=== PATIENT | female | born 1975 | race Caucasian/White ===

== ENCOUNTER 2017-10-28 04:17 | Emergency (ER) | payer BC ==
--- NOTE | 2017-10-28 04:24 | PDOC ---
History of Present Illness - General Stated Complaint: PAIN Time Seen by Provider: 10/28/17 04:24 - History of Present Illness Initial Comments: 10/28/17 04:32 Ms. Mcfarlane is a 42 yo female w/ pmh of HTN who presents c/o a 1 week history of diffuse back pain. She reports that this pain got worse 3-4 days ago to where she experiences significant pain with any movement, and worse again this morning when she woke up with increased, constant pain that she localizes to her left upper abdomen. She reports she must take shallow breaths currently to minimize the pain and that standing versus sitting eases her symptoms. The patient denies chest pain, shortness of breath, headache and dizziness. Denies fever, chills, nausea, vomit, diarrhea and constipation. Denies dysuria, frequency, urgency and hematuria. Allergies: NKDA Past History - Past Medical History Allergies/Adverse Reactions: Allergies Allergy/AdvReac Type Severity Reaction Status Date / Time No Known Allergies Allergy Verified 04/18/16 12:41 Home Medications: Ambulatory Orders Losartan/Hydrochlorothiazide [Hyzaar 50-12.5 Tablet] 1 each PO DAILY #14 tablet 04/18/16 Pantoprazole Sodium [Protonix] 40 mg PO DAILY #14 tablet. 04/18/16 HTN: Yes - Suicide/Smoking/Psychosocial Hx Smoking History: Never smoked Hx Alcohol Use: No Drug/Substance Use Hx: No Review of Systems - Review of Systems Comments:: 10/28/17 04:38 GENERAL/CONSTITUTIONAL: No fever or chills. No weakness. HEAD, EYES, EARS, NOSE AND THROAT: No change in vision. No ear pain or discharge. No sore throat. CARDIOVASCULAR: No chest pain or shortness of breath RESPIRATORY: No cough, wheezing, or hemoptysis. GASTROINTESTINAL: No nausea, vomiting, diarrhea or constipation. GENITOURINARY: No dysuria, frequency, or change in urination. MUSCULOSKELETAL: +Diffuse back pain with movement. SKIN: No rash NEUROLOGIC: No headache, vertigo, loss of consciousness, or change in strength/ sensation. ENDOCRINE: No increased thirst. No abnormal weight change HEMATOLOGIC/LYMPHATIC: No anemia, easy bleeding, or history of blood clots. ALLERGIC/IMMUNOLOGIC: No hives or skin allergy. *Physical Exam - Physical Exam Comments: 10/28/17 04:39 GENERAL: Awake, alert, and fully oriented, in no acute distress HEAD: No signs of trauma, normocephalic, atraumatic EYES: PERRLA, EOMI, sclera anicteric, conjunctiva clear ENT: Auricles normal inspection, hearing grossly normal, nares patent, oropharynx clear without exudates. Moist mucosa NECK: Normal ROM, supple, no lymphadenopathy, JVD, or masses LUNGS: No distress, speaks full sentences, clear to auscultation bilaterally HEART: Regular rate and rhythm, normal S1 and S2, no murmurs, rubs or gallops, peripheral pulses normal and equal bilaterally. ABDOMEN: Soft, nontender, normoactive bowel sounds. No guarding, no rebound. No masses EXTREMITIES: Normal inspection, Normal range of motion, no edema. No clubbing or cyanosis. NEUROLOGICAL: Cranial nerves II through XII grossly intact. Normal speech, normal gait, no focal sensorimotor deficits SKIN: Warm, Dry, normal turgor, no rashes or lesions noted. ED Treatment Course - LABORATORY CBC & Chemistry Diagram: 10/28/17 05:00 10/28/17 05:00 Medical Decision Making - Medical Decision Making 10/28/17 05:19 Ms. Mcfarlane is a 42 yo female w/ pmh of HTN who presents with symptoms of non- specific back/abdominal pain. CBC/CMP/lipase/lactate/EKG/cardiac profile sent for evaluation. 10/28/17 06:20 Labs all WNL as below. Patient reports some resolution of pain following percocet administration. EKG regular rhythm, regular rate, normal access and interval, no ST elevations or depression - normal EKG. Will discharge patient with instructions to f/u with PCP for further evaluation. Laboratory Results - last 24 hr 10/28/17 10/28/17 10/28/17 05:00 05:00 05:00 WBC 8.6 RBC 4.28 Hgb 12.9 Hct 38.4 MCV 89.6 MCH 30.1 MCHC 33.6 RDW 14.4 Plt Count 236 MPV 8.2 Neutrophils % 52.7 D Lymphocytes % 35.8 D Monocytes % 7.6 Eosinophils % 2.9 D Basophils % 1.0 Sodium 139 Potassium 4.4 D Chloride 105 Carbon Dioxide 23 D Anion Gap 11 BUN 18 Creatinine 0.7 Creat Clearance w eGFR > 60 Random Glucose 103 Lactic Acid Calcium 8.9 Total Bilirubin 0.3 AST 30 D ALT 28 D Alkaline Phosphatase 59 Troponin I < 0.02 Total Protein 7.4 Albumin 3.7 Lipase 228 Urine Color Ltyellow Urine Appearance Clear Urine pH 6.0 Ur Specific [place] 1.014 Urine Protein Negative Urine Glucose (UA) Negative Urine Ketones Negative Urine Blood Negative Urine Nitrite Negative Urine Bilirubin Negative Urine Urobilinogen Negative Urine WBC (Auto) 3 Urine RBC (Auto) <1 Ur Epithelial Cells Rare Urine Bacteria Rare Urine Mucus Rare Urine HCG, Qual Negative 10/28/17 05:00 WBC RBC Hgb Hct MCV MCH MCHC RDW Plt Count MPV Neutrophils % Lymphocytes % Monocytes % Eosinophils % Basophils % Sodium Potassium Chloride Carbon Dioxide Anion Gap BUN Creatinine Creat Clearance w eGFR Random Glucose Lactic Acid 1.2 Calcium Total Bilirubin AST ALT Alkaline Phosphatase Troponin I Total Protein Albumin Lipase Urine Color Urine Appearance Urine pH Ur Specific [place] Urine Protein Urine Glucose (UA) Urine Ketones Urine Blood Urine Nitrite Urine Bilirubin Urine Urobilinogen Urine WBC (Auto) Urine RBC (Auto) Ur Epithelial Cells Urine Bacteria Urine Mucus Urine HCG, Qual *DC/Admit/Observation/Transfer Diagnosis at time of Disposition: Back pain Qualifiers: Back pain location: back pain in unspecified location Chronicity: acute Back pain laterality: unspecified Qualified Code(s): M54.9 - Dorsalgia, unspecified - Discharge Dispostion Disposition: HOME Condition at time of disposition: Stable - Referrals - Patient Instructions Printed Discharge Instructions: DI for Thoracic Back Pain Additional Instructions: Please return if any fever, increased pain, altered mental status, or any other concerning symptoms. Follow-up with your primary care provider in 1-2 days for further evaluation. - Post Discharge Activity
--- NOTE | 2017-10-28 04:33 | PDOC ---
Attending Attestation - Resident Resident Name: Eran Real - ED Attending Attestation I have performed the following: I have examined & evaluated the patient, The case was reviewed & discussed with the resident, I agree w/resident's findings & plan - HPI HPI: 10/28/17 04:58 Pt comes with epigastric pain and musculoskeletal body aches. She is afebrile. She denies vomiting, diarrhea, cough, dysuria, chest pain, SOB. She has no drug or cigarette use. She has been socially drinking alcohol. - Physicial Exam PE: 10/28/17 04:59 Normal exam. Face flushed. Pt is not maintaining eye contact. - Medical Decision Making 10/28/17 05:00 Labs pending; ekg pending. Percocet for pain Follow with PMD
[2017-10-28 05:08] VITALS: TEMP 98.1; BMI 27.3
[2017-10-28 05:28] LABS: EOS % 2.9 % (0-4.5); HCG,QUALITATIVE URINE NEGATIVE; HEMATOCRIT 38.4 % (32.4-45.2); HEMOGLOBIN 12.9 GM/dL (10.7-15.3); LYMPH % 35.8 % (8-40); MCH 30.1 pg (25.7-33.7); MCHC 33.6 g/dl (32.0-36.0); MEAN CELL VOLUME 89.6 fl (80-96); MEAN PLT VOLUME 8.2 fl (7.5-11.1); MONO % 7.6 % (3.8-10.2); NEUT % 52.7 % (42.8-82.8); PLATELET COUNT 236 K/MM3 (134-434); RBC 4.28 M/mm3 (3.60-5.2); RDW 14.4 % (11.6-15.6); URINE APPEARANCE CLEAR; URINE BILIRUBIN NEGATIVE (NEGATIVE); URINE BLOOD NEGATIVE (NEGATIVE); URINE COLOR LTYELLOW; URINE GLUCOSE (UA) NEGATIVE (NEGATIVE); URINE KETONE NEGATIVE (NEGATIVE); URINE NITRITE NEGATIVE (NEGATIVE); URINE PROTEIN NEGATIVE (NEGATIVE); URINE UROBILINOGEN NEGATIVE mg/dL (0.2-1.0); WHITE BLOOD COUNT 8.6 K/mm3 (4.0-10.0)
[2017-10-28 05:34] LABS: URINE LEUK ESTERASE 1+ (NEGATIVE)
[2017-10-28 05:36] LABS: EPI CELLS RARE /HPF (FEW); URINE BACTERIA RARE /hpf (NONE SEEN); URINE MUCUS RARE
[2017-10-28 05:52] LABS: ALBUMIN 3.7 g/dl (3.4-5.0); ANION GAP 11 (8-16); BILIRUBIN,TOTAL 0.3 mg/dL (0.2-1.0); BLOOD UREA NITROGEN 18 mg/dL (7-18); CALCIUM 8.9 mg/dL (8.5-10.1); CHLORIDE 105 mmol/L (98-107); CO2 23 mmol/L (21-32); CREATININE 0.7 mg/dL (0.55-1.02); GLUCOSE,RANDOM 103 mg/dL (74-106); SGPT/ALT 28 U/L (12-78); SODIUM 139 mmol/L (136-145); TOT PROT 7.4 g/dl (6.4-8.2)
[2017-10-28 05:54] LABS: ALK PHOS 59 U/L (45-117)
[2017-10-28 06:02] LABS: LIPASE 228 U/L (73-393); POTASSIUM 4.4 mmol/L (3.5-5.1)
[2017-10-28 06:03] LABS: SGOT/AST 30 U/L (15-37)
[2017-10-28 08:54] VITALS: BP 131/75; PULSE 77
--- NOTE | 2017-10-29 09:41 | EKG ---
Test Reason : Blood Pressure : / mmHG Vent. Rate : 063 BPM Atrial Rate : 063 BPM P-R Int : 132 ms QRS Dur : 086 ms QT Int : 418 ms P-R-T Axes : 007 012 010 degrees QTc Int : 427 ms NORMAL SINUS RHYTHM NORMAL ECG Confirmed by MD Lugo Edward ([id number]) on 10/29/2017 9:41:16 AM Referred By: Confirmed By:Cali Lugo MD
== END 2017-10-28 08:54 | disposition home or self-care (01) ==
LOC: JER 04:17
DX: M54.89 Other dorsalgia (principal)
CPT/HCPCS: 36415; 80053; 81003; 81015; 82550; 83605; 83690; 84484; 84703; 85025; 93005; 93010; 99282-25